=== PATIENT | female | born 1985 | race Asian ===

== ENCOUNTER → 2019-10-23 08:40 | Outpatient (CLI) | payer OTHER, SELFPAY ==
[2019-10-23 09:27] LABS: Add Manual Diff / Slide Review NO; Basophils Absolute Auto 0 /uL (0-100); Basophils Percent Auto 0.3 % (0-2); Eosinophils Absolute Auto 100 /uL (0-450); Eosinophils Percent Auto 1.9 % (2-4); Hematocrit 40.3 % (36-46); Hemoglobin 13.8 g/dL (12.0-16.0); Lymphocytes Absolute Auto 1700 /uL (1100-4500); Lymphocytes Percent Auto 22.1 % (25-40); Mean Corpuscular HGB Conc 34.3 % (30-36); Mean Corpuscular Hemoglobin 30.7 PG (26-34); Mean Corpuscular Volume 89.5 fL (80-100); Monocytes Absolute Auto 300 /uL (0-900); Monocytes Percent Auto 4.2 % (3-14); Neutrophils Absolute Auto 5400 /uL (1500-7000); Neutrophils Percent Auto 71.5 % (50-75); Platelet Count 313 X10^3/uL (150-400); Red Cell Distribution Width 11.9 % (11.6-14.8); White Blood Cell Count 7.6 X10^3/uL (4.5-11.0)
[2019-10-23 09:36] LABS: Appearance Urine UA CLEAR; Bilirubin Urine UA NEGATIVE (NEGATIVE); Color Urine UA YELLOW; Glucose Urine UA NEGATIVE (Negative); Ketones Urine UA NEGATIVE (NEGATIVE); Leukocyte Esterase Urine UA NEGATIVE (NEGATIVE); Nitrite Urine UA NEGATIVE (Negative); Occult Blood Urine UA NEGATIVE (Negative); Protein Urine UA NEGATIVE (Negative); Urobilinogen Urine UA 0.2 E.U./dL (0.2)
[2019-10-24 09:31] LABS: RPR Screen Non Reactive (Non Reactive)
[2019-10-24 10:42] LABS: Varicella IgG Antibody 1174 index (Immune >165)
[2019-10-24 16:42] LABS: HIV 1 & 2 Ab/Ag 4th Gen Combo NEGATIVE (NEGATIVE); Hep C Virus Ab w/Reflex Quant NEGATIVE s/c (NEGATIVE); Hepatitis B Surface Antigen NEGATIVE s/c (NEGATIVE)
[2019-10-24 16:43] LABS: Rubella Antibody IgG 25.3 IU/mL (>15)
== END ==
PROVIDERS: PCP Specialist; Referring Provider Specialist; Visit Provider Obstetrics & Gynecology
DX: Z34.01 Encounter for supervision of normal first pregnancy, first trimester (principal)
CPT/HCPCS: 36415; 80055; 81003; 86787; 86803; 86850; 86900; 86901; 87077; 87086; 87389

== ENCOUNTER → 2019-12-24 09:12 | Outpatient (CLI) | payer OTHER, SELFPAY ==
[2019-12-24 17:26] LABS: Specimen Label KIT TEST
== END ==
PROVIDERS: PCP Specialist; Referring Provider Obstetrics & Gynecology; Visit Provider Obstetrics & Gynecology
DX: Z34.82 Encounter for supervision of other normal pregnancy, second trimester (principal); Z3A.16 16 weeks gestation of pregnancy
CPT/HCPCS: 36415

== ENCOUNTER → 2020-01-22 09:36 | Outpatient (CLI) | payer OTHER, SELFPAY ==
[2020-01-24 20:36] LABS: AFP Value 80.5 ng/mL (.); Gest Age on Col Date 20.4 weeks (.); Gestational Age Ultrasound (.); Insulin Dep Diabetes No (.); OSBR Risk 1IN 7366 (.); Results Report (.); Test Results *Screen Negative* (.)
== END ==
PROVIDERS: PCP Specialist; Referring Provider Specialist; Visit Provider Obstetrics & Gynecology
DX: Z34.82 Encounter for supervision of other normal pregnancy, second trimester (principal); Z3A.20 20 weeks gestation of pregnancy
CPT/HCPCS: 36415; 82105

== ENCOUNTER → 2020-05-05 15:31 | Outpatient (CLI) | payer OTHER, SELFPAY ==
[2020-05-06 12:36] LABS: Strep Grp B PCR NEG for Grp B Strep
== END ==
PROVIDERS: PCP Specialist; Visit Provider Obstetrics & Gynecology
DX: Z34.83 Encounter for supervision of other normal pregnancy, third trimester (principal); Z3A.35 35 weeks gestation of pregnancy
CPT/HCPCS: 87653

== ENCOUNTER 2020-06-02 06:08 | Inpatient (IN) | payer OTHER, SELFPAY ==
[2020-06-02] MEDS: LACTATED RINGERS 1,000 ML 42 ML IV ×2 (06:00→08:53)
[2020-06-02 07:17] LABS: Add Manual Diff / Slide Review NO; Basophils Absolute Auto 0 /uL (0-100); Basophils Percent Auto 0.1 % (0-2); Eosinophils Absolute Auto 100 /uL (0-450); Eosinophils Percent Auto 1.5 % (2-4); Hematocrit 37.8 % (36-46); Hemoglobin 12.8 g/dL (12.0-16.0); Lymphocytes Absolute Auto 1800 /uL (1100-4500); Lymphocytes Percent Auto 20.7 % (25-40); Mean Corpuscular HGB Conc 33.8 % (30-36); Mean Corpuscular Volume 85.8 fL (80-100); Monocytes Absolute Auto 600 /uL (0-900); Monocytes Percent Auto 6.7 % (3-14); Neutrophils Absolute Auto 6100 /uL (1500-7000); Platelet Count 337 X10^3/uL (150-400); Red Cell Distribution Width 13.5 % (11.6-14.8); White Blood Cell Count 8.6 X10^3/uL (4.5-11.0)
--- NOTE | 2020-06-02 07:31 | P.HP_ITS ---
History of Present Illness History of Present Illness Date Patient Seen: 06/02/20 Time Patient Seen: 07:31 Chief complaint: PRIMARY Narrative: Patient is a 34-year-old 2 para 0 who presents for a scheduled primary section due to breech presentation. Her was complicated by gestational diabetes that was diet controlled. Patient History Medical History (Updated 05/06/20 @ 06:30 by Alexandra Leal MD) Adopted Allergic rhinitis Asthma Implanon removal (~2017) Pap smear abnormality of cervix Tension headache Surgical History (Updated 10/15/19 @ 11:39 by Marguerite Kahn RN) H/O blepharoplasty H/O colposcopy with cervical biopsy (~06/14/17) [place] teeth removed Family & Social History Social History: household members friend(s) lives independently Yes caregiver/support person No Tobacco & Substance use: Smoking Status Former smoker alcohol intake former Meds Home Medications and Allergies Home Medications Medication Instructions Recorded Confirmed Type acetaminophen 325 mg tablet 325 mg PO ONCE PRN 10/15/19 05/27/20 History cetirizine 10 mg tablet 10 mg PO DAILY PRN 10/15/19 05/27/20 History prenat.vits,clayton,qyj-knsc-vdneq 1 tab PO DAILY 10/15/19 05/27/20 History Allergies Allergy/AdvReac Type Severity Reaction Status Date / Time lactose AdvReac Intermediate GI upset Verified 05/27/20 15:37 Exam Vital Signs (past 8 hours): Generally: Patient is sitting up in bed, no acute distress Lungs: Clear to auscultation bilaterally Cardiovascular: Regular rate and rhythm Fundal height: 39 cm Estimated weight: 7-1/2 lb Extremities: No edema Objective Labs Result Diagrams: 06/02/20 06:30 Labs: Laboratory Results - last 24 hr 06/02/20 06:30 WBC 8.6 RBC 4.40 Hgb 12.8 Hct 37.8 MCV 85.8 MCH 29.0 MCHC 33.8 RDW 13.5 Plt Count 337 Neut % (Auto) 71.0 Lymph % (Auto) 20.7 L [place] % (Auto) 6.7 Eos % (Auto) 1.5 L Baso % (Auto) 0.1 Neut # (Auto) 6100 Lymph # (Auto) 1800 [place] # (Auto) 600 Eos # (Auto) 100 Baso # (Auto) 0 Assessment & Plan Assessment & Plan narrative: Assessment: 34-year-old 2 para 0 at 39 and 2 7th weeks gestation for a scheduled section due to breech presentation Plan: Primary low-transverse section Preop done at last visit in the office with PAR-Q COVID-19 COVID-19 status: Negative Result date/Date tested (Pos, Neg/Pending): 05/30/20 Time Spent With Patient Time with patient: 15-24 minutes
--- NOTE | 2020-06-02 07:34 | PM.PREOP ---
Pre-operative Note COVID-19 COVID-19 status: Negative Result date/Date tested (Pos, Neg/Pending): 05/30/20 Interval Note History & Physical reviewed/Exam performed by Physician: No Changes to H&P: No H&P completed within 30 days and has changed as indicated here:: 06/02/20
[2020-06-02] MEDS: CEFAZOLIN 2 GM/100 ML FROZ.PIGGY IV (08:00)
--- NOTE | 2020-06-02 08:27 | SUR.OPER ---
Supine on Padded OR bed, head on pillow, safety belt at thigh, arms secured on padded arm boards at <90 degrees abduction. Bump under right buttock. Legs uncrossed with pillow under knees, gel pad to heels, tape over blanket to lower legs.
--- NOTE | 2020-06-02 08:39 | SUR.OPER ---
Viable baby girl delivered at 0829. Placenta delivered. Cord blood tubes X2 and placenta given to L&D RN.
[2020-06-02 09:17] VITALS: BP 94/55; PULSE 76; RESP 14; TEMP 36.5; O2SAT 98
[2020-06-02 09:22] VITALS: BP 97/59; PULSE 70; RESP 14; O2SAT 97
[2020-06-02 09:27] VITALS: BP 94/60; PULSE 74; RESP 14; O2SAT 96
--- NOTE | 2020-06-02 09:27 | P.OP_ITS ---
Operative Date/Time/Diagnoses Date of procedure: 06/02/20 Time of procedure: 09:27 Pre-op diagnosis: Thirty-nine weeks gestation Persistent breech presentation Post-op diagnosis: same Procedure & Clinicians Procedure: Primary low-transverse section Same procedure as scheduled: Yes Indications: Thirty-nine weeks gestation Persistent breech presentation Surgeon: Alexandra Leal Click Yes if Unassisted: No Salesforce Business Analyst: Regi Hernandez Reason for Salesforce Business Analyst: To assist with retraction, delivery of the , and cutting of suture Anesthesia Type: Spinal (With Duramorph) Operative Notes Findings: Live female infant Normal uterus, tubes, and ovaries Closure Type: primary Specimen(s): cord blood Intraoperative meds administered: Duramorph, Ketorolac and Pitocin Applied: Catheter (To continuous drainage) Estimated Blood Loss (mL): 350 Blood products transfused: none Procedure in detail: The patient was taken to the operating room where she was placed in the seated position. Spinal anesthesia was administered. She was then placed in the dorsal supine position with a leftward tilt. She was prepped and draped in the usual sterile fashion. A timeout was performed. After spinal analgesia was found to be adequate, a Pfannenstiel skin incision was made 2 fingerbreadths above the pubic symphysis and carried through to the underlying layer fascia. The fascia was nicked in the midline, and the incision extended bilaterally with the Hernández scissors. The superior aspect of the fascial incision was grasped with a Sabina clamps, elevated, and the underlying rectus muscles dissected off sharply and bluntly. Attention was then turned to the inferior aspect of this incision which in a similar fashion was grasped with a Newkirk clamps, elevated, and the underlying rectus muscles dissected off sharply and bluntly. The rectus muscles were in the midline. The peritoneum was identified, grasped between 2 hemostats, and entered sharply with the Metzenbaum scissors. This incision was extended superiorly and inferiorly with good visualization of the bladder. The bladder blade was inserted. The vesicouter ine peritoneum was identified, grasped with the pickup, and entered sharply with the Metzenbaum scissors. This incision was extended bilaterally, and the bladder flap was created digitally. The bladder blade was inserted. The lower uterine segment was incised in a transverse fashion with the scalpel. Upon entering the amniotic sac there was a small amount of clear amniotic fluid. The infant was delivered by total breech extraction. The nose and mouth were suctioned with bulb suction. The infant was handed off to waiting RN and RT. The placenta was delivered manually. The uterus was cleared of all clots and debris. The uterine incision was repaired with #1 chromic in a running interlocking fashion, and a second layer the same suture was used for an imbricating layer. Hemostasis was achieved. The tubes and ovaries were examined and were found to be normal. The gutters were cleared of all clots and debris. The bladder flap was reapproximated using 2-0 Vicryl in a running fas hion. The parietal peritoneum was closed using 2-0 Vicryl in a running fashion. The fascia was reapproximated using 0 Vicryl in a running fashion. The subcutaneous layer was copiously irrigated with warm normal saline. 5 simple interrupted sutures of 3-0 Vicryl were placed to reapproximate the subcutaneous layer. The skin was closed with 4-0 Monocryl in a subcuticular fashion. Steri-Strips were placed. An Aquacel dressing was placed. The uterus was expressed of a small amount of old blood. Sponge, lap, and instrument counts were correct x-2. The patient tolerated the procedure well, and was taken to PACU in stable condition. The television production assistant was necessary for retraction for entering the abdomen and the peritoneal cavity. They incised the contralateral fascia. They assisted with delivery of the baby with fundal pressure. They assisted with closure with retraction and cutting of suture. They closed the contralateral fascia. They assisted with retraction in closure of the abdomen. Complications: none [place] Baby 1: Gender: Female Presentation: vertex Placental Delivery Description: Manual Removal Cord Vessel Description: 3 Vessels score (1 min): 9 score (5 min): 9 weight: 7 lb 9 oz Post-operative Condition: stable Disposition: PACU Aftercare: routine postop
[2020-06-02 09:42] VITALS: BP 93/54; PULSE 80; RESP 16; TEMP 36.2; O2SAT 99
--- NOTE | 2020-06-02 09:53 | SUR.PHASEI ---
RECEIVED REPORT FROM ALDAIR Bragg RN AND DR. Huffman. AIRWAY PATENT AND UNASSISTED. LUNGS CLEAR. GAVE REPORT TO DELVIS QUIROGA IN OB. ALL QUESTIONS ANSWERED TO SATISFACTION, BROUGHT PATIENT TO RM 4 IN STABLE CONDITION.
[2020-06-02 12:22] VITALS: BP 96/64
[2020-06-02] MEDS: ACETAMINOPHEN 325 MG TABLET 650 MG PO (15:37)
[2020-06-02] MEDS: KETOROLAC 30 MG/ML VIAL IV ×2 (15:38→21:33)
[2020-06-03 07:00] LABS: Hematocrit 30.9 % (36-46); Hemoglobin 10.3 g/dL (12.0-16.0)
[2020-06-03] MEDS: DOCUSATE 250 MG CAPSULE PO (10:03)
[2020-06-03] MEDS: IBUPROFEN 600 MG TABLET PO (10:03)
[2020-06-03] MEDS: PRENATAL VIT,CALC/IRON/FOLIC 1 TABLET 1 TAB PO (10:03)
[2020-06-03] MEDS: ACETAMINOPHEN 325 MG TABLET 650 MG PO (10:04)
[2020-06-03 13:37] VITALS: BP 96/64; PULSE 80; RESP 16; TEMP 36.2
--- NOTE | 2020-06-03 18:07 | PM.OBDS.1 ---
Discharge Providers Provider Date of admission: 06/02/20 06:08 Discharge Date: 06/03/20 Primary care physician: Danielle Garcia MD Consults: 06/02/20 09:44 Consult to Dietetic Assistant Routine Comment: Discharge provider: Alexandra Leal MD Summary Hospital Course Date Patient Seen: 06/03/20 Time Patient Seen: 13:15 Diagnoses: Estimated gestational age of 39 weeks Persistent breech present Primary low-transverse section Hospital Course: Patient is a 34 year 2 para 1 postop day # 1 status post primary low-transverse section for persistent breech presentation at 39 weeks gestation. Patient's postoperative course was unremarkable. She has been able to void without a catheter. Her pain is well controlled. No nausea vomiting. going well. She is ambulating independently. She is tolerating a diet. Peripartum Data Infant Delivery Method: Section Laceration Description: None Episiotomy description: None Procedures: Spinal anesthesia Primary low-transverse section complications: none 1: Gender: Female Disposition of : home Status at Discharge Cognitive/behavioral status at discharge: oriented Functional status at discharge: independent ambulation Overall status at discharge: patient is progressing back to baseline Time Spent with Patient Time attestation: Total time spent providing and/or coordinating discharge services: Time spent: Less than 30 minutes Objective Labs Result Diagrams: 06/03/20 06:55 Labs: Laboratory Results - last 24 hr 06/03/20 06:55 Hgb 10.3 L Hct 30.9 L Exam Vital Signs (past 8 hours): - 06/03/20 13:37 Temperature 97.2 F L Pulse Rate 80 Respiratory Rate 16 Blood Pressure 96/64 Oxygen Delivery Method Room Air Oxygen Flow Rate 0 Narrative Exam Narrative: Generally: Patient is sitting in chair, no acute distress Lungs: Clear to auscultation bilaterally Cardiovascular: Regular rate and rhythm Fundus: Firm at U -1 Incision: Clean dry and intact with Aquacel dressing Extremities: Trace edema Discharge Plan Discharge Plan Patient Disposition: Home Provider Discharge Comment: Call with fever, chills, redness or drainage from the incision, or bleeding vaginally more than a pad in an hour Ibuprofen 600 mg every 6 hours Tylenol 650 mg every 6 hours Discharge orders & Medications Prescriptions: New oxycodone 5 mg tablet 5 mg PO Q4H PRN (Reason: pain) Qty: 20 RF: 0 Continued prenat.vits,clayton,[id number] Tablet 1 tab PO DAILY RF: 0 acetaminophen [Tylenol] 325 mg tablet 325 mg PO ONCE PRNRF: 0 cetirizine [Zyrtec] 10 mg tablet 10 mg PO DAILY PRNRF: 0 Follow up/Referrals: Alexandra Leal MD [Physician] - 07/15/20 11:30 am (Aquacel dressing to be removed by Kiko 2 wk Telehealth visit on saturday 06/17 at 4.45 pm 6 wk in person visit for check saturday 07/15 at 1130) Diet/Activity/Treatments Diet: Regular Activity: No heavy lifting Skin/Wound/Dressing Care Report to your healthcare provider any signs of infection, such as:: chills, fever, increased pain, unusual drainage and unusual redness Dressing: Remove in 1 week Visit Report/Discharge Packet Instructions: DI for , DI for Prescription Opioid Use Stand Alone Forms: Discharge: Care Discharge Data Primary Care Provider: Danielle Garcia
--- NOTE | 2020-06-05 11:07 | P.DS_ITS ---
Discharge Providers Provider Date of admission: 06/02/20 06:08 Discharge Date: 06/04/20 Primary care physician: Danielle Garcia MD Consults: 06/02/20 09:44 Consult to Middle [employer] Spanish Teacher Routine Comment: Discharge provider: Alexandra Leal MD Summary Hospital Course Date Patient Seen: 06/04/20 Time Patient Seen: 12:30 Hospital Course: Patient is a 34 year 2 para 1 postop day # 1 status post primary low- transverse section for persistent breech presentation at 39 weeks gesta tion. Patient's postoperative course was unremarkable. She has been able to void without a catheter. Her pain is well controlled. No nausea vomiting. going well. She is ambulating independently. She is tolerating a diet. Time Spent with Patient Time attestation: Total time spent providing and/or coordinating discharge services: Objective Labs Result Diagrams: 06/03/20 06:55 Exam Vital Signs (past 8 hours): Oxygen Delivery Method Room Air Oxygen Flow Rate 0 Discharge Plan Discharge Plan Patient Disposition: Home Provider Discharge Comment: Call with fever, chills, redness or drainage from the incision, or bleeding vaginally more than a pad in an hour Ibuprofen 600 mg every 6 hours Tylenol 650 mg every 6 hours Discharge orders & Medications Prescriptions: New oxycodone 5 mg tablet 5 mg PO Q4H PRN (Reason: pain) Qty: 20 RF: 0 Continued prenat.vits,clayton,[id number] Tablet 1 tab PO DAILY RF: 0 acetaminophen [Tylenol] 325 mg tablet 325 mg PO ONCE PRNRF: 0 cetirizine [Zyrtec] 10 mg tablet 10 mg PO DAILY PRNRF: 0 Follow up/Referrals: Alexandra Leal MD [Physician] - 07/15/20 11:30 am (Aquacel dressing to be removed by Kiko 2 wk Telehealth visit on saturday 06/17 at 4.45 pm 6 wk in person visit for check saturday 07/15 at 1130) Diet/Activity/Treatments Diet: Regular Activity: No heavy lifting Skin/Wound/Dressing Care Report to your healthcare provider any signs of infection, such as:: chills, fever, increased pain, unusual drainage and unusual redness Dressing: Remove in 1 week Visit Report/Discharge Packet Instructions: DI for , DI for Prescription Opioid Use Stand Alone Forms: Discharge: Care Discharge Data Primary Care Provider: Danielle Garcia
== END 2020-06-03 14:45 | disposition home or self-care (01) | DRG 788 ==
PROVIDERS: Admitting Provider Obstetrics & Gynecology; PCP Specialist; Referring Provider Obstetrics & Gynecology; Visit Provider Obstetrics & Gynecology
PROC: 10D00Z1 Extraction of Products of Conception, Low, Open Approach (ICD-10-PCS; CPT 59514; principal; 2020-06-02 07:45)
DX: O32.1XX0 Maternal care for breech presentation, not applicable or unspecified (principal); Z3A.39 39 weeks gestation of pregnancy; Z37.0 Single live birth
CPT/HCPCS: 36415; 59050; 59510; 85014; 85018; 85025; 86850; 86900; 86901; J0690; J1885; J2274; J2765

== ENCOUNTER → 2021-12-21 15:39 | Outpatient (CLI) | payer OTHER, SELFPAY ==
[2021-12-21 19:46] LABS: Urine N gonorrhoeae NOT DETECTED
[2021-12-21 19:49] LABS: Urine Chlamydia NOT DETECTED
== END ==
PROVIDERS: PCP Specialist; Visit Provider Obstetrics & Gynecology
DX: Z34.81 Encounter for supervision of other normal pregnancy, first trimester (principal); Z3A.10 10 weeks gestation of pregnancy
CPT/HCPCS: 87491; 87591

== ENCOUNTER → 2021-12-21 16:16 | Outpatient (CLI) | payer OTHER, SELFPAY ==
[2021-12-21 16:55] LABS: Appearance Urine UA CLEAR; Bilirubin Urine UA NEGATIVE (NEGATIVE); Color Urine UA YELLOW; Glucose Urine UA NEGATIVE (Negative); Ketones Urine UA NEGATIVE (NEGATIVE); Leukocyte Esterase Urine UA TRACE (NEGATIVE); Nitrite Urine UA NEGATIVE (Negative); Occult Blood Urine UA NEGATIVE (Negative); Protein Urine UA NEGATIVE (Negative); Urobilinogen Urine UA 0.2 E.U./dL (0.2)
[2021-12-21 16:58] LABS: Add Manual Diff / Slide Review NO; Basophils Absolute Auto 0 /uL (0-100); Basophils Percent Auto 0.2 % (0-2); Eosinophils Absolute Auto 100 /uL (0-450); Hematocrit 39.1 % (36-46); Hemoglobin 13.4 g/dL (12.0-16.0); Lymphocytes Absolute Auto 1700 /uL (1100-4500); Lymphocytes Percent Auto 15.6 % (25-40); Mean Corpuscular HGB Conc 34.4 % (30-36); Mean Corpuscular Hemoglobin 29.6 PG (26-34); Mean Corpuscular Volume 86.1 fL (80-100); Monocytes Absolute Auto 500 /uL (0-900); Monocytes Percent Auto 4.3 % (3-14); Neutrophils Absolute Auto 8800 /uL (1500-7000); Neutrophils Percent Auto 78.9 % (50-75); Platelet Count 312 X10^3/uL (150-400); Red Blood Cell Count 4.54 X10^6/uL (4.0-5.2); White Blood Cell Count 11.1 X10^3/uL (4.5-11.0)
[2021-12-21 17:25] LABS: pH Urine UA 7.5 (4.5-8.0)
[2021-12-21 17:31] LABS: Bacteria Urine Moderate (10-30); RBC Urine None Seen (0-5/HPF); Squamous Epithelial Cell Urine 0-1 /HPF (0-5/HPF); WBC Urine 0-1/HPF (0-5/HPF)
[2021-12-22 07:02] LABS: Varicella IgG Antibody 757 index (Immune >165)
[2021-12-22 08:59] LABS: RPR Screen Non Reactive (Non Reactive)
[2021-12-23 10:07] LABS: Hepatitis B Surface Antigen NEGATIVE s/c (NEGATIVE)
[2021-12-23 10:25] LABS: HIV 1 & 2 Ab/Ag 4th Gen Combo NEGATIVE (NEGATIVE); Hep C Virus Ab w/Reflex Quant NEGATIVE s/c (NEGATIVE)
[2021-12-23 14:36] LABS: Rubella Antibody IgG 26.5 IU/mL (>15)
== END ==
PROVIDERS: PCP Specialist; Referring Provider Obstetrics & Gynecology; Visit Provider Obstetrics & Gynecology
DX: Z34.81 Encounter for supervision of other normal pregnancy, first trimester (principal); Z3A.10 10 weeks gestation of pregnancy
CPT/HCPCS: 36415; 80055; 81003; 81015; 86787; 86803; 86850; 86900; 86901; 87086; 87389; 87491; 87591

== ENCOUNTER → 2022-05-16 13:00 | Outpatient (CLI) | payer OTHER, SELFPAY ==
--- NOTE | 2022-05-16 13:01 | DI.US.S_ITS ---
PROCEDURE: US OB FOLLOW UP INDICATIONS: Follow up 2 vessel cord on anatomy scan OUTSIDE/PRIOR DATING DATA: Last menstrual period (LMP): 10/11/2021 LMP-based estimated date of delivery (RAYMOND): 07/18/2022 Notes/report from prior imaging is not available. Attempted search was performed. Working RAYMOND is 07/18/2022 based on 1st dating scan 11/30/2021. TECHNIQUE: Real-time scanning was performed of the fetus, with image documentation, with biometric measurements. COMPARISON: [facility], , OB <= 14 WEEKS FETUS, 11/30/2021, 15:20. [facility], , US OB <= 14 WEEKS FETUS, 12/21/2021, 16:07. FINDINGS: A single living intrauterine gestation is present. Presentation: Vertex Placenta: Placental position is posterior, without previa. Amniotic fluid index: 11.1 cm, normal range is 5-24 cm. heart rate: 147 beats per minute. Maternal cervical canal: 3.9 cm long. Normal lower limit is 2.5 cm. BPD is 7.7 cm, 30 weeks and 6 days. Head circumference is 28.1 cm, 30 weeks and 5 days Abdominal circumference is 27 cm, 31 weeks and 1 day Femur length is 5.9 cm, 30 weeks and 6 days Estimated gestational age based on working RAYMOND is 31 weeks. Compensated gestational age today is 30 weeks and 6 days. Estimated weight is 1681 g, 38th percentile. Two vessel cord is present. Limited anatomy due to late gestational age. IMPRESSION: Living intrauterine at 31 weeks, with concordant biometry at the 38th percentile by reported working RAYMOND of 07/18/2022. A 2 vessel cord is present. Limited anatomy due to late gestational age. Prior images are not available for the radiologist to review and anatomic survey is not considered complete by this report. Please correlate with any outside prior imaging results, maternal aneuploidy risk factors, and laboratory correlation. Dictated by: Justen Chavez M.D. on 05/16/2022 at 16:21 Approved by: Justen Chavez M.D. on 05/16/2022 at 16:31
== END ==
PROVIDERS: PCP Specialist; Referring Provider Specialist; Visit Provider Specialist
DX: Z36.2 Encounter for other antenatal screening follow-up (principal); Z3A.31 31 weeks gestation of pregnancy
CPT/HCPCS: 76816

== ENCOUNTER → 2022-06-21 11:59 | Outpatient (CLI) | payer OTHER, SELFPAY ==
[2022-06-22 13:42] LABS: Strep Grp B PCR NEG for Grp B Strep
== END ==
PROVIDERS: PCP Specialist; Visit Provider Obstetrics & Gynecology
DX: Z34.83 Encounter for supervision of other normal pregnancy, third trimester (principal); Z3A.36 36 weeks gestation of pregnancy
CPT/HCPCS: 87653

== ENCOUNTER 2022-06-21 12:13 | Outpatient (CLI) | payer OTHER, SELFPAY | END 2022-06-21 13:01 | disposition home or self-care (01) | LOC: LABOR 12:24 → OB 06-27 11:15 | PROVIDERS: PCP Specialist; Referring Provider Obstetrics & Gynecology; Visit Provider Obstetrics & Gynecology | DX: O09.523 Supervision of elderly multigravida, third trimester (principal); Z3A.36 36 weeks gestation of pregnancy; Z34.83 Encounter for supervision of other normal pregnancy, third trimester | CPT/HCPCS: 59025; 87653; G0378; G0379 ==

== ENCOUNTER 2022-07-06 11:58 | Inpatient (IN) | payer OTHER, SELFPAY ==
--- NOTE | 2022-07-06 12:25 | P.HPOB_ITS ---
OB HPI Date/Time Date of admission: 07/06/22 Date Patient Seen: 07/06/22 Time Patient Seen: 12:25 History of Present Condition Chief complaint: labor RAYMOND Calculator Estimated Delivery Date Method Current WG Current Estimate 07/18/22 Ultrasound #1 38w 2d Other Estimates 07/03/22 LMP (Certain) 40w 3d Estimated Gestational Age (weeks): 38+2 : 3 Para: 1 care: good care, initiated at week #, number of visits (10) and pounds weight gain (27) Dating criteria OB: LMP confirmed by 1st trimester US Ultrasounds: normal 1st trimester US and normal mid trimester US Obstetrical complications: other (2 vessel cord) Medical complications OB: none Indications Operative indications ( section): previous uterine surgery (active labor) Preadmission Labs Last OB Lab Results: Blood Type B Positive 12/21/21 16:20 Antibody Screen Negative 12/21/21 16:20 Hematocrit 39.1 % (36-46) 12/21/21 16:20 Hemoglobin 13.4 g/dL (12.0-16.0) 12/21/21 16:20 Hepatitis B Surface Antigen Negative s/c (NEGATIVE) 12/21/21 16 :20 Hepatitis C Antibody Negative s/c (NEGATIVE) 12/21/21 16:20 Rubella Antibody 26.5 IU/mL (>15) 12/21/21 16:20 Varicella-Zoster IgG Antibody 757 index (Immune >165) 12/21/21 16:20 Group B Streptococcus (PCR) Neg for grp b strep 06/21/22 11:59 -: Chlamydia screen: negative, Gonorrhea screen: negative and Urine: negative -: PAP smear: Normal Genetic Screens: Cell-free DNA: Normal and Alpha-fetoprotein: Normal External Labs -: Urine: negative Prior (ies) Past Pregnancies Del. Date GA/Weeks Labor Lgth Wt Sex Route Outcome Anesthesia Place Delv Breastfeed Preg Comp Name 04/06/12 7 spontaneous [place] spontaneous 06/02/20 39 7 lb 8 oz Female live - full term IH Still going as of 11/24/21 none gestational diabetes Rachel Delivery Date: 06/02/20 Last Updated by: Claudette Hill RN planned c/s for breech Evaluation Evaluation Baseline heart rate: 125 Variability: Moderate (11-25) monitor accelerations: Present Monitor Decelerations: Absent Uterine Contraction Intensity: Strong/Firm Status: Category l Dilation (cm): 7 Effacement (%): 90 station: +1 Position of cervix: anterior Consistency: soft [facility] Medical History (Updated 03/16/22 @ 08:59 by Alexandra Leal MD) Adopted infant Allergic rhinitis Asthma Gestational diabetes Implanon removal (~2017) Pap smear abnormality of cervix Tension headache Surgical History (Updated 12/21/21 @ 16:06 by Alexandra Leal MD) Anesthesia H/O blepharoplasty H/O section (~05/2020) H/O colposcopy with cervical biopsy (~06/14/17) [place] teeth removed Social History marital status: unmarried,living together number of children: 1 household members: significant other and children (s/o's son lives w/ pt part- time) lives independently: Yes caregiver/support person: Yes housing: house pets and animals: Yes education level: college (vinayak's degree) 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) current occupational exposures/hazards: Yes (Aware of precautions) 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 special joseline needs: No travel history: over 6 months ago seatbelt use: always water heater temp set < 120 deg: Yes working smoke detector in home: Yes fire extinguisher in home: Yes carbon monox detector in home: Yes firearms in home: No do you feel safe at home: Yes Smoking Status: Former smoker (Quit 2014) Tobacco: How many years used: 7 (4 cigs/day, intermittently; quit with dx.) second hand exposure: No alcohol intake: former (occasional/rare when not (1-2/week)) substance use type: does not use during the past year weight has: remained stable well-balanced diet: daily or most days daily servings fruits/ve-4 caffeine: Yes (1 cup/day) Type(s) of exercise: walking and weight lifting frequency: 3-4 times per week Meds Home Medications and Allergies Home Medications Medication Instructions Recorded Confirmed Type cetirizine 10 mg tablet (Zyrtec) 10 mg PO DAILY PRN 10/15/19 06/30/22 History prenat.vits,clayton,[id number] 1 tab PO DAILY 10/15/19 06/30/22 History cholecalciferol (vitamin D3) 125 125 mcg PO DAILY 07/15/20 06/30/22 History mcg (5,000 unit) capsule calcium carbonate 500 mg calcium 500 mg PO DAILY 11/24/21 06/30/22 History (1,250 mg) chewable tablet (Calcium 500) ondansetron 4 mg disintegrating 4 mg PO Q6H PRN nausea and 12/06/21 06/30/22 Rx tablet vomiting #20 tabs Allergies Allergy/AdvReac Type Severity Reaction Status Date / Time lactose AdvReac Intermediate GI upset Verified 06/30/22 13:42 OB Exam Narrative Exam Narrative: Generally: Moderate distress due to contractions Lungs: CTA bilat CV: RRR FH: 38 cm Ext: No edema Assessment and Plan Assessment and Plan Assessment and Plan narrative: Assessment: 36 year old at 38+2 in active labor Previous C section Plan: Urgent repeat C section The risks, benefits and alternatives to the procedure were explained to the patient. The risks including bleeding, infection, injury to the bowel, bladder or ureter. She understands these risks and agrees to proceed. A full PAR-Q was held and consent form was signed. Time Spent with Patient Total time spent with greater than 50% in coordination of care (as documented) at patient's floor/unit and/or counseling patient:: 15-24 minutes
--- NOTE | 2022-07-06 12:32 | PM.PREOP ---
Pre-operative Note COVID-19 Criteria for continued procedure: Delay expected to result in less-positive ultimate med/surg outcome Interval Note History & Physical reviewed/Exam performed by Physician: Yes Changes to H&P: No H&P completed within 30 days and has changed as indicated here:: 07/06/22
[2022-07-06] MEDS: ACETAMINOPHEN IV 1,000 MG/100 ML VIAL 400 MG IV (12:45)
[2022-07-06] MEDS: CEFAZOLIN 2 GM/100 ML PREMIX 100 ML IV (12:50)
--- NOTE | 2022-07-06 13:22 | SUR.OPER ---
Viable baby girl delivered at 1308. Placenta delivered. Placenta and cord blood tubes x2 collected and given to L&D RN.
--- NOTE | 2022-07-06 13:37 | P.PCN_ITS ---
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 My responsibilities included retracting and suctioning, providing fundal pressure during delivery and following with suture during closure. Please see the OB's note for details of the surgery.
[2022-07-06] MEDS: TRIAMCINOLONE 40 MG/ML VIAL 30 MG IM (13:44)
[2022-07-06 13:50] VITALS: BP 117/79; PULSE 101; RESP 23; TEMP 36.1; O2SAT 98
--- NOTE | 2022-07-06 13:51 | P.OP_ITS ---
Operative Date/Time/Diagnoses Date of procedure: 07/06/22 Time of procedure: 13:51 Pre-op diagnosis: 38-2/7 weeks gestation Previous section Active labor 2 vessel umbilical cord Keloid scar Post-op diagnosis: same Procedure & Clinicians Procedure: Repeat low-transverse section Scar revision Same procedure as scheduled: Yes Indications: Thirty-eight weeks' gestation 2 vessel cord Previous section Keloid scar Active labor Surgeon: Alexandra Huffman Yes if Unassisted: No Cripple Chaser: Marietta Ness Reason for Cripple Chaser: The financial planning assistant was necessary to retract upon entry into the abdomen and uterus. She assisted with fundal pressure on delivery of the . She assisted with closure with retraction and clipping of suture. Anesthesia Type: Spinal Operative Notes Findings: Live female infant in the direct occiput posterior presentation Keloid scar of the Pfannenstiel incision Normal tubes and ovaries Closure Type: primary Specimen(s): cord blood and placenta Intraoperative meds administered: Duramorph, Ketorolac and Pitocin Applied: Catheter (To continuous drainage) Estimated Blood Loss (mL): 400 Blood products transfused: none Procedure in detail: The patient was taken to the operating room where she was placed in the seated position. Spinal anesthesia with Duramorph was administered. The patient was then placed in the dorsal supine position with a leftward tilt. She was prepped and draped in the usual sterile fashion. A timeout was performed. After spinal analgesia was found to be adequate, the previous Pfannenstiel incision was excised in an elliptical fashion. The incision was carried through to the underlying layer fascia. The fascia was nicked in the midline, and the incision extended bilaterally with the Hernández scissors. The superior aspect of the fascial incision was grasped with a [place] clamps, elevated, and the underlying rectus muscles dissected off sharply and bluntly. Attention was then turned to the inferior aspect of this incision which in a similar fashion was grasped with a [place] clamps, elevated, and the underlying rectus muscles dissected off sharply and bluntly. The rectus muscles were in the midline. The peritoneum was identified, grasped between 2 hemostats, and entered sharply with the Metzenbaum scissors. This incision was extended superiorly and inferiorly with good visualization of the bladder. The bladder blade was inserted. The vesicouterine peritoneum was identified, grasped with the pickup, and entered sharply with the Metzenbaum scissors. This incision was extended bilaterally, and the bladder flap was created digitally. The lower uterine segment was found to be very thin. The bladder blade was reinserted. The lower uterine segment was incised in a transverse fashion with the scalpel. Upon entering the amniotic sac there was moderate amount of clear amniotic fluid. The 's head was delivered without difficulty. The nose and mouth were suctioned with bulb suction. The remainder of the body delivered without difficulty. The infant was wrapped in a warm blanket. The cord was double clamped and cut after 1 minute. The was handed off to waiting RN and RT. The placenta was delivered manually. The uterus was cleared of all clots and debris. The uterine incision was repaired with #1 chromic in a running interlocking fashion, and a second layer the same suture was used for an imbricating layer. Hemostasis was achieved. The tubes and ovaries were examined and were found to be normal. The gutters were cleared of all clots and debris. The bladder flap was reapproximated using 2-0 Vicryl in a running fashion. The parietal peritoneum was closed using 2-0 Vicryl in a running fashion. The fascia was reapproximated using 0 Vicryl in a running fashion. The subcutaneous layer was copiously irrigated with warm normal saline. 5 simple interrupted sutures of 3- 0 Vicryl were placed to reapproximate the subcutaneous layer. The skin was closed with 4-0 undyed Vicryl in a subcuticular fashion. Steri-Strips were placed. An Aquacel dressing was placed. The uterus was expressed of a small amount of old blood. Sponge, lap, and instrument counts were correct x-2. The patient tolerated the procedure well, and was taken to PACU in stable condition. Complications: none [place] Baby 1: Infant Gender: Female Presentation: vertex Position: Occiput Posterior Placental Delivery Description: Manual Removal Cord Vessel Description: 2 Vessels score (1 min): 8 score (5 min): 9 weight: 8 lb 3 oz Post-operative Condition: stable Disposition: PACU Aftercare: routine postop
[2022-07-06 13:56] VITALS: BP 108/65; PULSE 113; RESP 14; O2SAT 98
[2022-07-06 14:01] VITALS: BP 102/68; PULSE 103; RESP 12; O2SAT 99
[2022-07-06 16:10] VITALS: BP 110/61
[2022-07-06] MEDS: ACETAMINOPHEN 325 MG TABLET 650 MG PO (17:49)
[2022-07-06] MEDS: KETOROLAC 30 MG/ML VIAL IV (20:00)
[2022-07-07] MEDS: ACETAMINOPHEN 325 MG TABLET 650 MG PO ×4 (00:05→19:44)
[2022-07-07] MEDS: KETOROLAC 30 MG/ML VIAL IV ×3 (02:00→07:53)
[2022-07-07 06:02] LABS: Add Manual Diff / Slide Review NO; Basophils Absolute Auto 0 /uL (0-100); Basophils Percent Auto 0.3 % (0-2); Eosinophils Absolute Auto 100 /uL (0-450); Eosinophils Percent Auto 0.6 % (2-4); Hematocrit 32.6 % (36-46); Hemoglobin 11.3 g/dL (12.0-16.0); Lymphocytes Absolute Auto 1400 /uL (1100-4500); Mean Corpuscular HGB Conc 34.6 % (30-36); Mean Corpuscular Hemoglobin 29.5 PG (26-34); Mean Corpuscular Volume 85.2 fL (80-100); Monocytes Absolute Auto 800 /uL (0-900); Monocytes Percent Auto 5.2 % (3-14); Neutrophils Absolute Auto 13700 /uL (1500-7000); Neutrophils Percent Auto 84.9 % (50-75); Platelet Count 265 X10^3/uL (150-400); Red Blood Cell Count 3.82 X10^6/uL (4.0-5.2); Red Cell Distribution Width 13.5 % (11.6-14.8); White Blood Cell Count 16.1 X10^3/uL (4.5-11.0)
[2022-07-07] MEDS: IBUPROFEN 600 MG TABLET PO ×2 (14:00→19:43)
[2022-07-07] MEDS: DOCUSATE 100 MG CAPSULE PO (17:24)
--- NOTE | 2022-07-07 17:43 | P.PNOB_ITS ---
Subjective - OB Subjective Patient comments: no complaints, pain well controlled and tolerating diet baby status: doing well and nursing well feeding status: exclusively breast feeding Date Patient Seen: 07/07/22 Time Patient Seen: 17:44 Interval history: Postop day # 1 status post repeat low-transverse section and scar revision Patient doing very well. Tolerating diet. Voided without the catheter. Ambulating independently. going well. Exam Vital Signs (past 8 hours): Oxygen Delivery Method Room Air Narrative Exam Narrative: Generally: Patient lying in bed on right side, no acute distress Lungs: Clear to auscultation bilaterally Cardiovascular: Regular rate and rhythm Fundus: Firm at U -1 Incision: Clean dry and intact with Aquacel dressing Extremities: No edema Objective Labs 07/07/22 05:50 Labs: Laboratory Results - last 24 hr 07/07/22 05:50 WBC 16.1 H RBC 3.82 L Hgb 11.3 L Hct 32.6 L MCV 85.2 MCH 29.5 MCHC 34.6 RDW 13.5 Plt Count 265 Neut % (Auto) 84.9 H Lymph % (Auto) 9.0 L [place] % (Auto) 5.2 Eos % (Auto) 0.6 L Baso % (Auto) 0.3 Neut # (Auto) 13980 H Lymph # (Auto) 1400 [place] # (Auto) 800 Eos # (Auto) 100 Baso # (Auto) 0 Assessment & Plan Plan day: 1 plan OB: routine postop care Comments: Anticipate discharge July 09, 2019 Time Spent With Patient Time: Total time spent is greater than 50% in coordination of care (as documented) at patient's floor/unit and/or counseling patient: Time with patient: less than 15 minutes
[2022-07-08] MEDS: IBUPROFEN 600 MG TABLET PO ×2 (02:11→09:00)
[2022-07-08] MEDS: ACETAMINOPHEN 325 MG TABLET 650 MG PO ×2 (05:09→11:27)
[2022-07-08] MEDS: PRENATAL VIT,CALC/IRON/FOLIC 1 TABLET 1 TAB PO (09:00)
[2022-07-08] MEDS: DOCUSATE 100 MG CAPSULE PO (09:01)
--- NOTE | 2022-07-18 19:34 | PM.OBDS.1 ---
Discharge Providers Provider Date of admission: 07/06/22 11:58 Discharge Date: 07/08/22 Primary care physician: Danielle Garcia MD Consults: 07/06/22 14:11 Consult to Flat Bed Knitter Routine Comment: Discharge provider: Alexandra Leal MD Summary Hospital Course Date Patient Seen: 07/08/22 Time Patient Seen: 09:30 Diagnoses: 38-2/7 weeks gestation 2 vessel cord Previous section Repeat low-transverse section Active labor Hospital Course: Patient is a 36-year-old 3 para 2 who presented on July 06, 2022 in active labor. She had had a prior section. Her was complicated by a two-vessel cord. She underwent a repeat low-transverse section without complication. Her course was unremarkable. On day # 1 her Prater catheter was removed and she was able to void without the catheter. Her pain was well controlled. She tolerated a diet. She was ambulating independently. No nausea or vomiting. She was discharged home on July 08, 2022. Peripartum Data Delivery Method: Section Procedures: Repeat low-transverse section Spinal anesthesia complications: none [place] 1: Gender: Female Disposition of : home Status at Discharge Cognitive/behavioral status at discharge: oriented Functional status at discharge: independent ambulation Overall status at discharge: patient is progressing back to baseline Time Spent with Patient Time attestation: Total time spent providing and/or coordinating discharge services: Time spent: Less than 30 minutes Objective Labs 07/07/22 05:50 Exam Vital Signs (past 8 hours): Oxygen Delivery Method Room Air Narrative Exam Narrative: Generally: Patient is sitting up in bed, no acute distress Lungs: Clear to auscultation bilaterally Cardiovascular: Regular rate and rhythm Fundus: Firm at U -2 Incision: Clean dry and intact with Aquacel dressing Extremities: No edema, negative Homans Discharge Plan Discharge Plan Patient Disposition: Home Provider Discharge Comment: Call with fever, chills, or redness or drainage around the incision Call with bleeding vaginally more than a pad in an hour Ibuprofen 600 mg every 6 hours as needed Tylenol 650 mg every 6 hours as needed Push oral fluids Stool softeners as needed Discharge orders & Medications Prescriptions: New oxycodone 5 mg tablet 5 mg PO Q4H PRN (Reason: pain) Qty: 14 0RF Continued prenat.vits,clayton,[id number] Tablet 1 tab PO DAILY cetirizine [Zyrtec] 10 mg tablet 10 mg PO DAILY PRN cholecalciferol (vitamin D3) 125 mcg (5,000 unit) capsule 125 mcg PO DAILY calcium carbonate [Calcium 500] 500 mg calcium (1,250 mg) tablet,chewable 500 mg PO DAILY Discontinued ondansetron 4 mg tablet,disintegrating 4 mg PO Q6H PRN (Reason: nausea and vomiting) Qty: 20 0RF Follow up/Referrals: Alexandra Leal MD [Physician] - 07/13/22 11:15 am (Telehealth appointment with Dr. Leal on 07/20 at 4:30pm. Six week follow up appoinment with Dr. Leal on 08/17 at 3:30pm ) Diet/Activity/Treatments Diet: Regular Activity: No heavy lifting Skin/Wound/Dressing Care Report to your healthcare provider any signs of infection, such as:: chills, fever, increased pain, unusual drainage and unusual redness Dressing: Remove Aquacel dressing in 1 week Leave Steri-Strips in place for 2 weeks Visit Report/Discharge Packet Instructions: DI for , DI for Prescription Opioid Use Stand Alone Forms: Discharge: Care, Patient Portal/API, Stroke Signs & Symptoms Discharge Data Primary Care Provider: Danielle Garcia Discharges patient from system. Discharge Date/Time: 07/08/22 13:25
== END 2022-07-08 13:25 | disposition home or self-care (01) | DRG 788 ==
PROVIDERS: Admitting Provider Obstetrics & Gynecology; PCP Specialist; Referring Provider Obstetrics & Gynecology; Visit Provider Obstetrics & Gynecology
PROC: 10D00Z1 Extraction of Products of Conception, Low, Open Approach (ICD-10-PCS; CPT 59514; principal; 2022-07-06 12:45)
DX: O34.211 Maternal care for low transverse scar from previous cesarean delivery (principal); O75.82 Onset (spontaneous) of labor after 37 completed weeks of gestation but before 39 completed weeks gestation, with delivery by (planned) cesarean section; Z3A.38 38 weeks gestation of pregnancy; Z37.0 Single live birth; O99.892 Other specified diseases and conditions complicating childbirth; L91.0 Hypertrophic scar; O43.193 Other malformation of placenta, third trimester
CPT/HCPCS: 36415; 59050; 59510; 84112; 85025; G0379; J0131; J0690; J1885; J2274; J2704